=== PATIENT | male | born 1990 | race Two or more races ===

== ENCOUNTER 2020-06-10 18:39 | Inpatient (IN) | payer BC, OTHER ==
[~2020-06-10] VITALS: Ht 175.3 cm; Wt 79.8 kg
[2020-06-10] MEDS ORDERED: MORPHINE SULFATE 4 MG/ML SYR/VIAL ONE (18:50)
[2020-06-10] MEDS ORDERED: ONDANSETRON HCL 4 MG/2 ML VIAL ONE (18:51)
[2020-06-10] MEDS ORDERED: MORPHINE SULFATE 4 MG/ML SYR/VIAL IV ONE (19:00)
[2020-06-10] MEDS ORDERED: SODIUM CHLORIDE 0.9% 1,000 ML IV ONE ×2 (19:00→20:30)
[2020-06-10] MEDS ORDERED: ONDANSETRON HCL 4 MG/2 ML VIAL IV ONE (19:00)
[2020-06-10] MEDS ORDERED: KETOROLAC TROMETH 30 MG/ML 1ML VIAL ONE (19:06)
[2020-06-10 19:44] LABS: Basophils # (auto) 0.1 10 ^3/uL (0-0.2); Basophils % (auto) 0.6 % (0.0-2.0); Eosinophils # (auto) 0 10 ^3/uL (0-0.8); Eosinophils % (auto) 0.3 % (0.0-7.0); Hemoglobin 16.1 g/dL (13.5-17.5); Lymphocytes # (auto) 3.8 10 ^3/uL (0.4-5.4); Lymphocytes % (auto) 33.1 % (10.0-50.0); Mean Corpuscular Hemoglobin 31.9 pg (28.0-32.0); Mean Corpuscular Hgb Conc. 33.5 g/dL (32.0-36.0); Mean Corpuscular Volume 95.1 fL (80.0-100.0); Monocytes # (auto) 0.8 10 ^3/uL (0-1.3); Monocytes % (auto) 7.4 % (0.0-12.0); Neutrophils # (auto) 6.7 10 ^3/uL (1.6-8.6); Neutrophils % (auto) 58.6 % (37.0-80.0); Nucleated Red Blood Cells % 0.1 %; Platelet Count (auto) 297 10^3/uL (140-450); Red Blood Cells 5.04 10^6/uL (4.5-5.90); Red Cell Distribution Width 13.4 % (11.8-14.3); White Blood Cell 11.4 10^3/uL (4.4-10.8)
[2020-06-10 20:01] LABS: INR 0.97 (0.9-1.15); Partial Thromboplastin Time 22.6 sec (23.0-31.2)
[2020-06-10 20:02] LABS: Amylase 50 U/L (25-115); Anion Gap 11 (5-15); Blood Urea Nitrogen 18 mg/dL (7-18); Calcium 9.2 mg/dL (8.5-10.1); Carbon Dioxide 21 mmol/L (21-32); Chloride 107 mmol/L (98-107); Glucose 142 mg/dL (74-106); Lipase 68 U/L (73-393); Magnesium 2.2 mg/dL (1.6-2.6); Potassium 3.6 mmol/L (3.5-5.1); Sodium 139 mmol/L (136-145)
[2020-06-10 20:05] LABS: Lactic Acid w/Reflex 4.4 mmol/L (0.4-2.0)
[2020-06-10 20:08] LABS: Alanine Aminotransferase 123 U/L (16-61); Alkaline Phosphatase 58 U/L (45-117); Aspartate Aminotransferase 43 U/L (15-37); BUN/Creatinine Ratio 13.8; Bilirubin, Total 0.6 mg/dL (0.2-1.0); GFR African American 84 mL/min; GFR Non-African American 69 mL/min; Total Protein 7.8 g/dL (6.4-8.2)
[2020-06-10] MEDS ORDERED: HYDROmorphone HCL 2 MG/ML VL IV ONE ×3 (20:15→22:15)
[2020-06-10] MEDS ORDERED: MORPHINE SULF INJ 2 MG/ML SYRINGE 1ML IV PRN (23:00)
[2020-06-10] MEDS: SOD CHL 0.45% 1,000 ML IV SCH (23:00)
[2020-06-10] MEDS ORDERED: ACETAMINOPHEN 325 MG TAB PO PRN (23:00)
[2020-06-10] MEDS ORDERED: ONDANSETRON HCL 4 MG/2 ML VIAL IV PRN (23:00)
[2020-06-10] MEDS ORDERED: HYDROcodone-ACET 5/325MG TAB PO PRN (23:00)
[2020-06-10] MEDS ORDERED: NITROGLYCERIN 0.4 MG SL TAB SL PRN (23:00)
[2020-06-10] MEDS ORDERED: DOCUSATE SOD 100 MG CAP PO PRN (23:00)
--- NOTE | 2020-06-11 00:13 | NUR ---
Telemetry admit from [facility] admitted to Telemetry unit after SBAR received. Patient oriented to Leobardo Garcia, primary RN, unit, room, bed, and unit policies regarding patient care and visiting hours. Patient now on continuous telemetry monitoring, tele box #75 and telemetry reading on arrival to unit is SR 70s. Patient placed on bedside oxygen, weighed by bedscale and encouraged to call if they need something. All questions and concerns addressed, patient verbalized understanding.
[2020-06-11] MEDS: HYDROmorphone HCL 2 MG/ML VL IV PRN ×4 (00:30→14:20)
[2020-06-11 00:56] VITALS: BP 147/86
[2020-06-11 05:00] VITALS: BP 133/87
[2020-06-11 05:20] LABS: Urine Bacteria NONE SEEN /hpf (None Seen); Urine Blood TRACE /uL (Negative); Urine Mucus MODERATE (None Seen); Urine Specific Gravity 1.024 (1.001-1.035); Urine WBC 2 /hpf (0 - 3)
[2020-06-11 07:01] LABS: Basophils # (auto) 0 10 ^3/uL (0-0.2); Basophils % (auto) 0.2 % (0.0-2.0); Eosinophils # (auto) 0 10 ^3/uL (0-0.8); Eosinophils % (auto) 0.1 % (0.0-7.0); Hemoglobin 14.9 g/dL (13.5-17.5); Lymphocytes # (auto) 1.5 10 ^3/uL (0.4-5.4); Lymphocytes % (auto) 15.5 % (10.0-50.0); Mean Corpuscular Hemoglobin 32.6 pg (28.0-32.0); Mean Corpuscular Hgb Conc. 33.8 g/dL (32.0-36.0); Mean Corpuscular Volume 96.5 fL (80.0-100.0); Monocytes # (auto) 0.7 10 ^3/uL (0-1.3); Neutrophils # (auto) 7.7 10 ^3/uL (1.6-8.6); Neutrophils % (auto) 77.2 % (37.0-80.0); Platelet Count (auto) 263 10^3/uL (140-450); Red Blood Cells 4.56 10^6/uL (4.5-5.90); Red Cell Distribution Width 13.4 % (11.8-14.3); White Blood Cell 9.9 10^3/uL (4.4-10.8)
[2020-06-11 07:11] LABS: Potassium 4.4 mmol/L (3.5-5.1)
[2020-06-11 07:19] LABS: Albumin 3.5 g/dL (3.4-5.0); BUN/Creatinine Ratio 14.1; Bilirubin, Total 0.8 mg/dL (0.2-1.0); Calcium 8.8 mg/dL (8.5-10.1); Total Protein 6.7 g/dL (6.4-8.2)
--- NOTE | 2020-06-11 07:45 | NUR ---
opening shift note Assumed care of patient from NOC RN. Patient is AOx4 no s/s of distress noted. Bed is in lowest locked position, call light within reach and side rails up x2. Updated patient on plan of care patient verbalized understanding. Will continue to monitor q1hr and PRN.
[2020-06-11 09:00] VITALS: BP 139/87
[2020-06-11] MEDS: ENOXAPARIN SOD 40 MG/0.4 ML SYRINGE SC SCH (09:33)
[2020-06-11] MEDS: cefTRIAXone 1GM/50ML D5W 50 ML IV SCH (09:33)
[2020-06-11] MEDS ORDERED: MANNITOL FTV 25% 12.5 GM/50 ML 50 ML IV ONE (09:45)
[2020-06-11] MEDS ORDERED: SODIUM CHLORIDE 0.9% 1,000 ML IV ONE (09:45)
--- NOTE | 2020-06-11 09:50 | NUR ---
Physician rounding Dr. Lama at [facility]. MD updated patient on plan of care. Patient verbalized understanding. Per MD strain urine and monitor I&Os. Will follow through.
--- NOTE | 2020-06-11 10:05 | NUR ---
Urology consult GAVIN Meadows at bedside. Provider updated patient on plan of care. Patient verbalized understanding. New orders received, will follow through.
--- NOTE | 2020-06-11 11:00 | NUR ---
Spoke with family Spoke with patients father Jasvir. Updated Jasvir on plan of care and patient status. Jasvir verbalized understanding. phone number is #[phone]
--- NOTE | 2020-06-11 11:12 | NUR ---
Provider rounding GAVIN Meadows at nurses station. Per provider patient is clear from urology stand point, but treatment plan per attending physician. Patient can follow up as out patient if needed, upon d/c.
--- NOTE | 2020-06-11 11:36 | NUR ---
Physician rounding Dr. Hicks at nurses station. No new orders received.
[2020-06-11 13:00] VITALS: BP 122/74
[2020-06-11] MEDS: SOD CHL 0.45% 1,000 ML IV SCH ×2 (14:26→18:52)
--- NOTE | 2020-06-11 16:39 | NUR ---
Urine Output Urine output at this time is noted to be 950ml. No stone noted to have passed when straining urine. Will continue to monitor.
[2020-06-11 17:00] VITALS: BP 115/61
[2020-06-11] MEDS ORDERED: TAMSULOSIN HYDROCHLORIDE 0.4 MG CAP PO SCH (18:00)
--- NOTE | 2020-06-11 19:00 | NUR ---
end of shift note endorsed care to NOC RN. No s/s of distress noted.
--- NOTE | 2020-06-11 20:00 | NUR ---
Opening Shift Note Assumed care of patient, awake and alert. No S/S of distress/SOB or pain. Instructed on POC and to call for assist PRN. Bed in lowest locked position, call light within reach, side rails upx2. Will continue to monitor for changes Q1hr and PRN.
[2020-06-11 21:00] VITALS: BP 119/74
--- NOTE | 2020-06-12 02:04 | NUR ---
Hospitalist paged call center supervisor hospitalist called regarding patient requesting nasal allergy medication. Waiting for call back. Continue care.
--- NOTE | 2020-06-12 02:07 | NUR ---
Hospitalist returned call MACHINE [employer] Felisha returned call, updated on patient status and reason for call, new orders received and read back for verification. Continue care.
[2020-06-12] MEDS ORDERED: diphenhdrAMINE HCL 25 MG CAP PO PRN (02:15)
[2020-06-12 05:00] VITALS: BP 132/92
[2020-06-12] MEDS: SOD CHL 0.45% 1,000 ML IV SCH (05:00)
[2020-06-12 07:03] LABS: Potassium 3.8 mmol/L (3.5-5.1)
[2020-06-12 07:11] LABS: BUN/Creatinine Ratio 12.6; Calcium 8.4 mg/dL (8.5-10.1)
--- NOTE | 2020-06-12 07:30 | NUR ---
Assumed care Patient comfortably resting in bed, no s/s of distress noted. Patient noted to be AOX4, he denies any pain at this time. Patient updated on POC and to call for assistance as needed, patient verbalized understanding. Bed in lowest locked position, call light within reach, will continue care.
[2020-06-12 09:00] VITALS: BP 112/66
[2020-06-12] MEDS: cefTRIAXone 1GM/50ML D5W 50 ML IV SCH (09:21)
[2020-06-12] MEDS: ENOXAPARIN SOD 40 MG/0.4 ML SYRINGE SC SCH (09:21)
[2020-06-12 12:26] VITALS: BP 112/66
[2020-06-12 13:00] VITALS: BP 116/83
--- NOTE | 2020-06-12 13:02 | NUR ---
DISCHARGE Discharge instructions given as ordered. Encourage to follow up with PMD as instructed. Appointment information given in printed copy on 06/24/2020 at [address] Hicks. All questions and concerns addressed. Patient verbalized understanding. IV removed with catheter intact, pressure dressing applied. Telemetry unit returned to ICU. Patient taken to vehicle via wheelchair with all personal belongings, accompanied by staff and family member. No distress noted at time of departure.
== END 2020-06-12 13:37 | disposition home or self-care (01) | DRG 690 ==
LOC: EDSEX 18:39 → EDBD 18:39 → ER 18:39 → TELE 18:40 → TELE-WESTW 23:53
PROVIDERS: ADMIT Nurse Practitioner Family; ATTEND Family Medicine
DX: N13.5 Crossing vessel and stricture of ureter without hydronephrosis (principal); E87.2 Acidosis; N17.9 Acute kidney failure, unspecified; N39.0 Urinary tract infection, site not specified; N20.2 Calculus of kidney with calculus of ureter; E66.01 Morbid (severe) obesity due to excess calories; Z83.3 Family history of diabetes mellitus; Z87.891 Personal history of nicotine dependence; Z90.49 Acquired absence of other specified parts of digestive tract; D72.829 Elevated white blood cell count, unspecified
CPT/HCPCS: 36415; 74176; 80048; 80053; 81001; 82150; 83036; 83605; 83690; 83735; 84484; 85025; 85610; 85730; 87040; 96365; 96367; G0378; J0696; J1885; J2405

== ENCOUNTER → 2020-08-31 | Outpatient (CLI) | payer BC ==
[2020-08-31 09:55] LABS: Urine WBC None Seen /hpf (0 - 3)
[2020-08-31 10:13] LABS: Basophils # (auto) 0.1 10 ^3/uL (0-0.2); Eosinophils # (auto) 0.1 10 ^3/uL (0-0.8); Eosinophils % (auto) 0.8 % (0.0-7.0); Hematocrit 48.1 % (41.0-53.0); Hemoglobin 16.4 g/dL (13.5-17.5); Lymphocytes # (auto) 2.2 10 ^3/uL (0.4-5.4); Lymphocytes % (auto) 30.8 % (10.0-50.0); Mean Corpuscular Hemoglobin 32.3 pg (28.0-32.0); Mean Corpuscular Hgb Conc. 34.1 g/dL (32.0-36.0); Mean Corpuscular Volume 94.7 fL (80.0-100.0); Monocytes # (auto) 0.4 10 ^3/uL (0-1.3); Monocytes % (auto) 5.5 % (0.0-12.0); Neutrophils # (auto) 4.3 10 ^3/uL (1.6-8.6); Neutrophils % (auto) 61.9 % (37.0-80.0); Nucleated Red Blood Cells % 0.1 %; Platelet Count (auto) 282 10^3/uL (140-450); Red Blood Cells 5.08 10^6/uL (4.5-5.90); Red Cell Distribution Width 12.9 % (11.8-14.3)
[2020-08-31 10:24] LABS: Urine Bacteria NONE SEEN /hpf (None Seen); Urine Blood Negative /uL (Negative); Urine Specific Gravity 1.003 (1.001-1.035)
[2020-08-31 10:32] LABS: Potassium 4.4 mmol/L (3.5-5.1)
[2020-08-31 10:45] LABS: Albumin 3.9 g/dL (3.4-5.0); BUN/Creatinine Ratio 13.8; Bilirubin, Total 0.6 mg/dL (0.2-1.0); Calcium 9.8 mg/dL (8.5-10.1); Total Protein 7.9 g/dL (6.4-8.2)
== END | disposition home or self-care (01) ==
LOC: LAB 09:24
PROVIDERS: ATTEND Internal Medicine
DX: R73.9 Hyperglycemia, unspecified (principal)
CPT/HCPCS: 36415; 80053; 80061; 81001; 82306; 83036; 84443; 85025